=== PATIENT | female | born 2000 | race Hispanic/Latino ===

== ENCOUNTER → 2023-10-19 | Outpatient (CLI) | payer OTHER ==
[~2023-10-19] MED LIST: ACET-683 PO; IBUP1TAB5 PO
[2023-10-19 14:57] LABS: PLATELET COUNT, AUTOMATED 260 10^3/uL (150-450)
[2023-10-19 15:19] LABS: INR 0.95; PARTIAL THROMBOPLASTIN TIME 26.6 SECONDS (24.8-34.2); PROTHROMBIN TIME 12.4 SECONDS (12.5-14.5)
== END ==
LOC: M CARPUL 13:54
PROVIDERS: ATTEND Internal Medicine Pulmonary Disease
DX: R91.8 Other nonspecific abnormal finding of lung field (principal)

== ENCOUNTER 2023-10-20 10:51 | Day surgery (SDC) | payer OTHER ==
[~2023-10-20] VITALS: Ht 154.9 cm; Wt 73.0 kg
[~2023-10-20 10:51] MED LIST changes: +CETACAINE SPRAY 5GM As Ordered ONE; +EPINEPHrine 1MG/10ML SYRINGE 1.5IN As Ordered ONE
[2023-10-20] MEDS ORDERED: KETOROLAC 60MG 2ML VIAL As Ordered ONE (11:06)
[2023-10-20] MEDS ORDERED: propofoL 200 MG/20 ML VIAL As Ordered ONE (11:06)
[2023-10-20] MEDS ORDERED: ONDANSETRON 4MG 2ML VIAL As Ordered ONE (11:06)
[2023-10-20] MEDS ORDERED: dexmedeTOMIDine (4MCG/ML)200MCG/50ML BTL (PRECEDEX) As Ordered ONE (11:07)
[2023-10-20] MEDS ORDERED: SUGAMMADEX SODIUM 500 MG/5 ML VIAL (BRIDION) As Ordered ONE (11:07)
[2023-10-20] MEDS ORDERED: MIDAZOLAM INJ 2MG/2ML VIAL As Ordered ONE (11:07)
[2023-10-20] MEDS ORDERED: fentaNYL 100 MCG/2 ML INJECTION As Ordered ONE (11:07)
[2023-10-20] MEDS ORDERED: ROCURONIUM BROMIDE 50MG/5ML VIAL As Ordered ONE (11:07)
[2023-10-20] MEDS ORDERED: LIDOCAINE 2% 100MG/5ML SDV (FOR ANES.) As Ordered ONE (11:07)
[2023-10-20] MEDS: LIDOCAINE 2% MDV 20ML VIAL As Ordered ONE (12:30)
[2023-10-20] MEDS: LIDOCAINE 4% TOPICAL SOLN 50 ML BTL As Ordered ONE (12:30)
[2023-10-20 13:20] VITALS: BP 117/66; TEMP 98; O2SAT 96
== END 2023-10-20 13:30 | disposition home or self-care (01) ==
LOC: M SDC 10:51
PROVIDERS: ATTEND Internal Medicine Pulmonary Disease
DX: R91.8 Other nonspecific abnormal finding of lung field (principal); Z87.820 Personal history of traumatic brain injury
CPT/HCPCS: 31624; 87070; 87077; 87102; 87116; 87186; 87205; 87206; 88108; J1100; J1885; J2250; J2405; J3010

== ENCOUNTER → 2023-10-30 | Outpatient (CLI) | payer OTHER ==
[~2023-10-30] MED LIST changes: -CETACAINE SPRAY 5GM As Ordered ONE; -EPINEPHrine 1MG/10ML SYRINGE 1.5IN As Ordered ONE
[2023-10-30 14:30] LABS: EOS # 0.1 10^3/uL (0.0-0.5)
== END ==
LOC: M LAB 13:51
PROVIDERS: ATTEND Internal Medicine Pulmonary Disease
DX: R91.8 Other nonspecific abnormal finding of lung field (principal); B67 Echinococcosis

== ENCOUNTER 2023-11-02 20:41 | Emergency (ER) | payer OTHER ==
[~2023-11-02] VITALS: Ht 154.9 cm; Wt 70.2 kg
[2023-11-02 21:21] LABS: BASO % 0.3 % (0.0-1.0); EOS # 0.2 10^3/uL (0.0-0.5); EOS % 1.1 % (0.0-3.0); HEMATOCRIT 37.2 % (36.0-47.0); HEMOGLOBIN 12.2 g/dl (12.0-15.5); LYMPH # 1.7 10^3/uL (1.5-5.0); MEAN CORPUSCULAR HEMOGLOBIN 27.9 pg (27.0-33.0); MEAN CORPUSCULAR HGB CONC 32.8 g/dl (32.0-36.5); MEAN CORPUSCULAR VOLUME 84.9 fl (80.0-96.0); MONO % 7.7 % (2.0-8.0); NEUTROPHILS # 10.3 10^3/uL (1.5-8.5); NEUTROPHILS % 77.4 % (36.0-66.0); PLATELET COUNT, AUTOMATED 268 10^3/uL (150-450); RED BLOOD COUNT 4.38 10^6/uL (4.00-5.40); WHITE BLOOD COUNT 13.3 10^3/uL (4.0-10.0)
[2023-11-02 21:39] LABS: AMORPHOUS SEDIMENT SMALL (NEGATIVE); APPEARANCE, URINE HAZY (CLEAR); BACTERIA, URINE AUTO 1+ (NEGATIVE); BILIRUBIN, URINE AUTO NEGATIVE (NEGATIVE); BLOOD, URINE BLOOD NEGATIVE (NEGATIVE); COLOR, URINE YELLOW (YELLOW); GLUCOSE, URINE (UA) AUTO NEGATIVE (NEGATIVE); KETONE, URINE AUTO NEGATIVE (NEGATIVE); LEUKOCYTE ESTERASE, URINE AUTO NEGATIVE (NEGATIVE); MUCUS, URINE SMALL (NEGATIVE); NITRITE, URINE AUTO NEGATIVE (NEGATIVE); PROTEIN, URINE AUTO NEGATIVE (NEGATIVE); RBC, URINE AUTO 3 /HPF (0-3); SPECIFIC GRAVITY URINE AUTO 1.017 (1.002-1.035); SQUAMOUS EPITHELIAL CELL UR AU 4 /HPF (0-6); WBC, URINE AUTO 3 /HPF (0-3)
[2023-11-02 21:47] LABS: LIPASE 24 U/L (12-53)
[2023-11-02 21:49] LABS: ALBUMIN 3.6 G/DL (3.2-5.2); ALKALINE PHOSPHATASE 65 U/L (46-116); ALT/SGPT 27 U/L (7.0-40); AST/SGOT 13 U/L (<34); BILIRUBIN,DIRECT 0.2 MG/DL (<0.4); BILIRUBIN,TOTAL 0.5 MG/DL (0.3-1.2); BLOOD UREA NITROGEN 7 MG/DL (9-23); CALCIUM LEVEL 8.6 MG/DL (8.5-10.1); CARBON DIOXIDE LEVEL 25 MMOL/L (20-31); CHLORIDE LEVEL 102 MMOL/L (98-107); CK-MB VALUE MASS < 1.0 NG/ML (<3.6); CPK CREATINE PHOSPHOKINASE 53 U/L (34-145); CREATININE FOR GFR 0.46 MG/DL (0.55-1.30); GLOMERULAR FILTRATION RATE > 60.0 (>60); GLUCOSE, FASTING 94 MG/DL (60-100); MB/CK RELATIVE INDEX 1.88 (< OR =4); POTASSIUM SERUM 3.9 MMOL/L (3.5-5.1); SODIUM LEVEL 134 MMOL/L (136-145); TOTAL PROTEIN 6.9 G/DL (5.7-8.2)
[2023-11-02 22:02] LABS: HCG, SERUM QUALITATIVE POSITIVE (NEGATIVE)
[2023-11-02 23:43] LABS: HCG, SERUM QUANTITATIVE 60179.3 MIU/ML (<4.2)
[2023-11-03] MEDS: NS 1,000 ML IV ONE (04:23)
[2023-11-03 04:53] LABS: CK-MB VALUE MASS < 1.0 NG/ML (<3.6)
[2023-11-03 04:56] LABS: CPK CREATINE PHOSPHOKINASE 53 U/L (34-145); MB/CK RELATIVE INDEX 1.88 (< OR =4)
[2023-11-03] MEDS: IPRATROPIUM 0.5MG/ALBUTEROL 2.5MG INH SOL UD 3ML (DUONEB) NEB ONE (05:39)
[2023-11-03] MEDS: ACETAMINOPHEN TAB 650MG DOSE (2X325MG) PO ONE (08:15)
[2023-11-03 12:16] VITALS: BP 104/57; TEMP 97.6; O2SAT 99
== END 2023-11-03 12:21 | disposition home or self-care (01) ==
LOC: M ED 20:41
DX: O99.511 Diseases of the respiratory system complicating pregnancy, first trimester (principal); J98.4 Other disorders of lung; Z3A.01 Less than 8 weeks gestation of pregnancy

== ENCOUNTER 2023-12-23 20:28 | Emergency (ER) | payer OTHER ==
[~2023-12-23] VITALS: Ht 157.5 cm; Wt 66.8 kg
[2023-12-23] MEDS ORDERED: GABA-284 PO (20:48)
[2023-12-23] MEDS ORDERED: ALBE200T13 PO (20:48)
[2023-12-23] MEDS ORDERED: OXYC15TA66 PO (20:48)
[2023-12-23 21:23] LABS: BASO % 0.2 % (0.0-1.0); EOS # 0.2 10^3/uL (0.0-0.5); EOS % 0.8 % (0.0-3.0); HEMATOCRIT 37.7 % (36.0-47.0); HEMOGLOBIN 12.3 g/dl (12.0-15.5); LYMPH # 1.4 10^3/uL (1.5-5.0); LYMPH % 7.3 % (24.0-44.0); MEAN CORPUSCULAR HGB CONC 32.6 g/dl (32.0-36.5); MEAN CORPUSCULAR VOLUME 82.9 fl (80.0-96.0); MONO % 5.3 % (2.0-8.0); NEUTROPHILS # 16.1 10^3/uL (1.5-8.5); PLATELET COUNT, AUTOMATED 329 10^3/uL (150-450); RED BLOOD COUNT 4.55 10^6/uL (4.00-5.40); WHITE BLOOD COUNT 18.8 10^3/uL (4.0-10.0)
[2023-12-23] MEDS: ACETAMINOPHEN TAB 650MG DOSE (2X325MG) PO ONE (21:29)
[2023-12-23] MEDS: NS 1,000 ML IV ONE ×3 (21:29→23:10)
[2023-12-23 22:09] LABS: ALBUMIN 4.3 G/DL (3.2-5.2); ALKALINE PHOSPHATASE 111 U/L (46-116); BILIRUBIN,DIRECT 0.2 MG/DL (<0.4); BILIRUBIN,TOTAL 0.4 MG/DL (0.3-1.2); BLOOD UREA NITROGEN 10 MG/DL (9-23); CALCIUM LEVEL 9.5 MG/DL (8.5-10.1); CARBON DIOXIDE LEVEL 23 MMOL/L (20-31); CHLORIDE LEVEL 102 MMOL/L (98-107); CREATININE FOR GFR 0.55 MG/DL (0.55-1.30); GLOMERULAR FILTRATION RATE > 60.0 (>60); GLUCOSE, FASTING 100 MG/DL (60-100); HCG, SERUM QUALITATIVE NEGATIVE (NEGATIVE); POTASSIUM SERUM 3.8 MMOL/L (3.5-5.1); SODIUM LEVEL 135 MMOL/L (136-145); TOTAL PROTEIN 8.1 G/DL (5.7-8.2)
[2023-12-23 22:20] LABS: ALT/SGPT 318 U/L (7.0-40); AST/SGOT 115 U/L (<34); PROCALCITONIN 0.07 ng/ml
[2023-12-23] MEDS ORDERED: VENTAER INH (22:45)
[2023-12-23] MEDS ORDERED: AMOX875T2 PO (22:45)
[2023-12-23] MEDS: cefTRIAXone SOD 1 GM in D5W MINI-BAG PLUS 50 ML IV ONE (22:52)
[2023-12-23] MEDS: AZITHROMYCIN INJ 500 MG, VIAL MATE ADAPTER 1 EACH in NS 250 ML IV ONE (23:00)
[2023-12-24 00:15] VITALS: BP 98/54; TEMP 99; O2SAT 100
== END 2023-12-24 00:30 | disposition home or self-care (01) ==
LOC: M ED 20:28
DX: J20.9 Acute bronchitis, unspecified (principal); B34.8 Other viral infections of unspecified site; R91.8 Other nonspecific abnormal finding of lung field
CPT/HCPCS: 71045; 80048; 80076; 83605; 84145; 84703; 85025; 86140; 87040; 87486; 87581; 87633; 87798; 93041; 94760; 96361; 96365; 96366; 96375; 99284; J0456; J0696

== ENCOUNTER 2024-01-17 10:39 | Emergency (ER) | payer OTHER ==
[~2024-01-17] VITALS: Ht 157.5 cm; Wt 70.9 kg
[~2024-01-17 10:39] MED LIST changes: +ALBE200T13 PO; +AMOX875T2 PO; +GABA-284 PO; +OXYC15TA66 PO; +VENTAER INH
[2024-01-17 13:46] LABS: BASO % 0.5 % (0.0-1.0); EOS # 0.4 10^3/uL (0.0-0.5); EOS % 4.9 % (0.0-3.0); HEMATOCRIT 37.8 % (36.0-47.0); HEMOGLOBIN 12.2 g/dl (12.0-15.5); LYMPH # 2.6 10^3/uL (1.5-5.0); LYMPH % 32.2 % (24.0-44.0); MEAN CORPUSCULAR HEMOGLOBIN 26.8 pg (27.0-33.0); MEAN CORPUSCULAR HGB CONC 32.3 g/dl (32.0-36.5); MEAN CORPUSCULAR VOLUME 83.1 fl (80.0-96.0); MONO # 0.5 10^3/uL (0.0-0.8); MONO % 5.8 % (2.0-8.0); NEUTROPHILS # 4.6 10^3/uL (1.5-8.5); NEUTROPHILS % 56.2 % (36.0-66.0); PLATELET COUNT, AUTOMATED 336 10^3/uL (150-450); RED BLOOD COUNT 4.55 10^6/uL (4.00-5.40); WHITE BLOOD COUNT 8.1 10^3/uL (4.0-10.0)
[2024-01-17 14:14] LABS: LIPASE 33 U/L (12-53)
[2024-01-17 14:16] LABS: ALBUMIN 4.2 G/DL (3.2-5.2); ALKALINE PHOSPHATASE 102 U/L (46-116); ALT/SGPT 375 U/L (7.0-40); AST/SGOT 159 U/L (<34); BILIRUBIN,DIRECT 0.2 MG/DL (<0.4); BILIRUBIN,TOTAL 0.5 MG/DL (0.3-1.2); BLOOD UREA NITROGEN 9 MG/DL (9-23); CALCIUM LEVEL 9.3 MG/DL (8.5-10.1); CARBON DIOXIDE LEVEL 25 MMOL/L (20-31); CHLORIDE LEVEL 105 MMOL/L (98-107); CREATININE FOR GFR 0.52 MG/DL (0.55-1.30); GLOMERULAR FILTRATION RATE > 60.0 (>60); GLUCOSE, FASTING 93 MG/DL (60-100); SODIUM LEVEL 137 MMOL/L (136-145)
[2024-01-17 14:21] LABS: HCG, SERUM QUALITATIVE NEGATIVE (NEGATIVE)
[2024-01-17] MEDS: NS 1,000 ML IV ONE (15:44)
[2024-01-17] MEDS: KETOROLAC 30 MG/ML 1ML VIAL IV ONE (15:44)
[2024-01-17] MEDS: MORPHINE 2 MG/ML 1ML VIAL IV ONE (17:37)
[2024-01-17] MEDS: ONDANSETRON 4MG 2ML VIAL IV ONE (17:37)
[2024-01-17 17:58] LABS: HEPATITIS B SURFACE ANTIGEN NEGATIVE (NEGATIVE)
[2024-01-17 18:10] LABS: INR 1.14; PARTIAL THROMBOPLASTIN TIME 30.7 SECONDS (24.8-34.2); PROTHROMBIN TIME 14.3 SECONDS (12.5-14.5)
[2024-01-17 18:20] LABS: HEPATITIS B CORE ANTIBODY IGM NEGATIVE (NEGATIVE); HEPATITIS C VIRUS ABY INDEX < 0.02 INDEX (<0.8)
[2024-01-17] MEDS ORDERED: ONDA4TAB6 PO (18:33)
[2024-01-17] MEDS ORDERED: OXYC-517 PO (18:33)
[2024-01-17 18:45] VITALS: BP 132/78; TEMP 97.8; O2SAT 98
== END 2024-01-17 18:51 | disposition home or self-care (01) ==
LOC: M ED 10:39
DX: R16.0 Hepatomegaly, not elsewhere classified (principal); R74.01 Elevation of levels of liver transaminase levels; K82.4 Cholesterolosis of gallbladder; T50.905A Adverse effect of unspecified drugs, medicaments and biological substances, initial encounter; K76.0 Fatty (change of) liver, not elsewhere classified; Z86.19 Personal history of other infectious and parasitic diseases; Z79.899 Other long term (current) drug therapy
CPT/HCPCS: 76705; 80048; 80074; 80076; 81001; 83690; 84703; 85025; 85610; 85730; 87086; 96361; 96374; 96375; 99283; J1885; J2405

== ENCOUNTER → 2024-03-21 | Outpatient (CLI) | payer OTHER ==
[~2024-03-21] MED LIST changes: +ONDA-282 PO; +OXYC-517 PO; +PROHANCE 279.3MG/ML 15ML VIAL As Ordered ONE
== END ==
LOC: M RAD 15:46
PROVIDERS: ATTEND Internal Medicine Gastroenterology
DX: R10.11 Right upper quadrant pain (principal); R94.5 Abnormal results of liver function studies; R93.3 Abnormal findings on diagnostic imaging of other parts of digestive tract; K76.0 Fatty (change of) liver, not elsewhere classified; K82.4 Cholesterolosis of gallbladder; N28.1 Cyst of kidney, acquired
CPT/HCPCS: 74183; A9576

== ENCOUNTER 2024-05-24 15:11 | Emergency (ER) | payer OTHER ==
[~2024-05-24] VITALS: Ht 157.5 cm; Wt 73.2 kg
[~2024-05-24 15:11] MED LIST changes: -PROHANCE 279.3MG/ML 15ML VIAL As Ordered ONE
[2024-05-24 15:57] LABS: BASO % 0.5 % (0.0-1.0); EOS # 0.1 10^3/uL (0.0-0.5); EOS % 1.1 % (0.0-3.0); HEMATOCRIT 39.7 % (36.0-47.0); HEMOGLOBIN 12.9 g/dl (12.0-15.5); LYMPH # 2.6 10^3/uL (1.5-5.0); LYMPH % 32.8 % (24.0-44.0); MEAN CORPUSCULAR HEMOGLOBIN 26.8 pg (27.0-33.0); MEAN CORPUSCULAR HGB CONC 32.5 g/dl (32.0-36.5); MEAN CORPUSCULAR VOLUME 82.5 fl (80.0-96.0); MONO # 0.5 10^3/uL (0.0-0.8); MONO % 6.1 % (2.0-8.0); NEUTROPHILS # 4.7 10^3/uL (1.5-8.5); NEUTROPHILS % 59.1 % (36.0-66.0); PLATELET COUNT, AUTOMATED 283 10^3/uL (150-450); RED BLOOD COUNT 4.81 10^6/uL (4.00-5.40); WHITE BLOOD COUNT 7.9 10^3/uL (4.0-10.0)
[2024-05-24 16:35] LABS: BLOOD UREA NITROGEN 10 MG/DL (9-23); CALCIUM LEVEL 9.1 MG/DL (8.5-10.1); CARBON DIOXIDE LEVEL 23 MMOL/L (20-31); CHLORIDE LEVEL 109 MMOL/L (98-107); GLOMERULAR FILTRATION RATE > 60.0 (>60); GLUCOSE, FASTING 88 MG/DL (60-100); POTASSIUM SERUM 4.2 MMOL/L (3.5-5.1); SODIUM LEVEL 138 MMOL/L (136-145)
[2024-05-24 16:38] LABS: HCG, SERUM QUALITATIVE NEGATIVE (NEGATIVE)
[2024-05-24 18:07] LABS: CK-MB VALUE MASS < 1.0 NG/ML (<3.6)
[2024-05-24 18:08] LABS: CPK CREATINE PHOSPHOKINASE 180 U/L (34-145); MB/CK RELATIVE INDEX 0.55 (< OR =4)
[2024-05-24 21:12] LABS: CK-MB VALUE MASS < 1.0 NG/ML (<3.6)
[2024-05-24 21:16] LABS: FREE T4 1.35 NG/DL (0.89-1.76); THYROID STIMULATING HORMONE 1.026 uIU/ML (0.55-4.78)
[2024-05-24 21:27] LABS: CPK CREATINE PHOSPHOKINASE 166 U/L (34-145)
[2024-05-24] MEDS: KETOROLAC 30 MG/ML 1ML VIAL IV ONE (22:07)
[2024-05-24] MEDS: MAALOX 30 ML SUSP *UDC PO ONE (22:52)
[2024-05-24 23:30] VITALS: BP 115/61
[2024-05-24 23:47] VITALS: TEMP 98.3; O2SAT 99
== END 2024-05-24 23:47 | disposition home or self-care (01) ==
LOC: M ED 15:11
DX: R07.89 Other chest pain (principal); R20.2 Paresthesia of skin; Z79.51 Long term (current) use of inhaled steroids; Z79.899 Other long term (current) drug therapy
CPT/HCPCS: 71046; 80048; 82550; 82553; 84439; 84443; 84484; 84703; 85025; 85379; 93005; 96374; 99285; J1885

== ENCOUNTER → 2025-06-08 | Outpatient (CLI) | payer OTHER | LOC: M RAD 09:17 | PROVIDERS: ATTEND Internal Medicine Pulmonary Disease | DX: J45.20 Mild intermittent asthma, uncomplicated (principal) ==